=== PATIENT | male | born 1945 | race Caucasian/White ===

== ENCOUNTER 2019-10-09 09:52 | Outpatient (CLI) | payer MEDICARE ==
[~2019-10-09] VITALS: Ht 190.5 cm; Wt 136.1 kg
[2019-10-09 10:21] LABS: ABG BASE EXCESS -3.1 mmol/L (-2.0-2.0); ABG HCO3 21.2 mmol/L (22.0-26.0); ABG OXYGEN SATURATION 96.2 % (94-97); ABG PCO2 (T) 36.1 mmHg (35.0-48.0); ABG PO2 (T) 81.6 mmHg (75.0-100.0); ALLEN'S TEST POSITIVE; FCOHb 0.6 % (0.0-3.9); FMetHb 0.1 % (0.0-1.5); FO2Hb 95.5 % (94-97); TOTAL HEMOGLOBIN 15.2 G/dl (14.0-18.0)
[2019-10-09] MEDS ORDERED: albuterol 2.5 MG/3 ML nebule NEB ONE (10:40)
== END 2019-10-09 23:59 | disposition home or self-care (01) ==
LOC: RT 09:52
PROVIDERS: ATTEND Internal Medicine Cardiovascular Disease
DX: J98.8 Other specified respiratory disorders (principal); R06.02 Shortness of breath
CPT/HCPCS: 36600; 82803; 85018; 94060; 94727; 94729; 94760

== ENCOUNTER 2021-06-21 06:43 | Day surgery (SDC) | payer MEDICARE ==
[2021-06-14 16:26] LABS: BASOPHILS % (AUTO) 0.4 % (0-1); EOSINOPHILS # (AUTO) 0.2 X10'3 (0-0.9); EOSINOPHILS % (AUTO) 2.9 % (0-6); LYMPHOCYTES # (AUTO) 1.5 X10'3 (1.1-4.8); LYMPHOCYTES % (AUTO) 20.2 % (21-51); MEAN CORPUSCULAR HEMOGLOBIN 32.3 PG (27.0-31.0); MEAN CORPUSCULAR HGB CONC 34.5 g/dL (33.0-36.5); MEAN CORPUSCULAR VOLUME 93.7 FL (78-98); MEAN PLATELET VOLUME 7.3 FL (7.4-10.4); MONOCYTES # (AUTO) 0.6 X10'3 (0-0.9); MONOCYTES % (AUTO) 7.8 % (2-12); NEUTROPHILS # (AUTO) 5.1 X10'3 (1.8-7.7); NEUTROPHILS % (AUTO) 68.7 % (42-75); PRE OP HEMATOCRIT 40.1 % (42.0-52.0); PRE OP HEMOGLOBIN 13.8 g/dL (14.0-17.9); PRE OP PLATELET COUNT 144 X10'3 (140-440); RED BLOOD COUNT 4.28 X10'6 (4.70-6.10); RED CELL DISTRIBUTION WIDTH 13.1 % (11.5-14.5)
[2021-06-14 16:39] LABS: ALBUMIN 4.1 G/DL (3.4-5.0); ALBUMIN/GLOBULIN RATIO 1.1 (1.1-1.5); ALKALINE PHOSPHATASE 107 IU/L (46-116); BLOOD UREA NITROGEN 31 MG/DL (7-18); BUN/CREATININE RATIO 21.4 (5.4-32.0); CHLORIDE 107 MMOL/L (99-107); CREATININE 1.45 MG/DL (0.60-1.10); PRE OP ALT 32 U/L (30-65); PRE OP ANION GAP 9 (8-16); PRE OP AST 17 U/L (10-37); PRE OP BILIRUB, TOTAL 0.6 MG/DL (0.0-1.0); PRE OP GLUCOSE 152 MG/DL (70-104); PRE OP SODIUM 145 MMOL/L (135-145); TOTAL CARBON DIOXIDE 29.5 MMOL/L (24-32); TOTAL PROTEIN 7.7 G/DL (6.4-8.2); eGFR 47 ML/MIN
[~2021-06-21] VITALS: Ht 188 cm; Wt 141.5 kg
[~2021-06-21 06:43] MED LIST: ACET-2119 PO; ALLO100T PO; ALPH600C3 PO; CARV-50 PO; CLOP75TA15 PO; DOCUMENT DATE & TIME OF BETA-BLOCKER PO ONE; ERGO500041 PO; FLO0.4C PO; GABA-530 PO; GLIP10TA11 PO; HYDR25TA5 PO; LISI40TA13 PO; OMEG-79 PO; SERT50TA PO; SIMV-42 PO; TRAM50TA2 PO; TRAZ-251 PO; TURM500C4 PO; ceFAZolin inj. 3,000 MG in normal saline 100ml IV soln 100 ML IV ONE; famotidine 20mg tablet PO ONE; ringers solution, lacted 1,000 ML IV SCH
[2021-06-21 06:55] VITALS: BP 172/90
[2021-06-21] MEDS ORDERED: LIDOcaine 0.5% (5mg/ml) 50ml vial ONE (07:06)
[2021-06-21] MEDS ORDERED: labetalol 20mg/4ml (5mg/ml) syringe IV PRN (07:10)
[2021-06-21] MEDS ORDERED: ringers solution, lacted 1,000 ML IV SCH (07:10)
[2021-06-21] MEDS ORDERED: morphine 4 MG/ML inj SYRINge IV PRN (07:10)
[2021-06-21] MEDS ORDERED: hydrALAZINE 20mg/ml inj. IV PRN (07:10)
[2021-06-21] MEDS ORDERED: fentaNYL/PF 50MCG/1 ML 2ML syringe IV PRN ×2 (07:10)
[2021-06-21] MEDS ORDERED: ondansetron/PF 4mg/2ml inj IV PRN (07:10)
[2021-06-21] MEDS ORDERED: morphine 2 MG/ML inj. syringe IV PRN (07:10)
[2021-06-21] MEDS ORDERED: BUPIVAcaine 0.5% inj/PF 30 ML ONE (09:29)
[2021-06-21 10:27] VITALS: BP 127/68
[2021-06-21 10:40] VITALS: BP 141/59
[2021-06-21 10:50] VITALS: BP 143/66
[2021-06-21 11:00] VITALS: BP 128/61
[2021-06-21 11:10] VITALS: BP 128/60
--- NOTE | 2021-06-21 11:47 | NUR ---
pt up and ambulatory independent with cane. DC instructions written and verbal dc reviewed with pt and . and pt verbalized understanding of dc instructions and follow up care. Questions addressed. Pt discharged on own home O2, all belongings with pt and upon departure from Hospital. Dc via wheelchair to POV, and 2 RN assist into car without incident. Addendum: 06/21/21 at 1236 by Yudy Gerardo RN Amended: Links added.
== END 2021-06-21 11:47 | disposition home or self-care (01) ==
LOC: PAS 06:43
PROVIDERS: ATTEND Orthopaedic Surgery Hand Surgery
DX: G56.01 Carpal tunnel syndrome, right upper limb (principal); E11.22 Type 2 diabetes mellitus with diabetic chronic kidney disease; N18.30 Chronic kidney disease, stage 3 unspecified; I50.9 Heart failure, unspecified; I48.91 Unspecified atrial fibrillation; J44.9 Chronic obstructive pulmonary disease, unspecified; E66.01 Morbid (severe) obesity due to excess calories; Z68.39 Body mass index [BMI] 39.0-39.9, adult; Z20.822 Contact with and (suspected) exposure to COVID-19; Z79.01 Long term (current) use of anticoagulants; Z79.899 Other long term (current) drug therapy; Z79.84 Long term (current) use of oral hypoglycemic drugs; Z87.891 Personal history of nicotine dependence; Z72.89 Other problems related to lifestyle; Z98.890 Other specified postprocedural states; Z96.653 Presence of artificial knee joint, bilateral; Z98.41 Cataract extraction status, right eye
CPT/HCPCS: 36415; 64721; 71046; 80053; 82948; 85025; J0690; J3490; J7030; J7120; S0020; U0003; U0005; Z7506; Z7512; A4215